=== PATIENT | male | born 1985 | race Caucasian/White ===

== ENCOUNTER 2017-12-14 15:12 | Emergency (ER) | payer OTHER, SELFPAY ==
[2017-12-14 15:38] VITALS: BP 145/92; PULSE 82; RESP 20; TEMP 36.9; O2SAT 99; BMI 41.3
[2017-12-14 16:10] LABS: UTC Influenza A Antigen Negative (Negative); UTC Influenza B Antigen Negative (Negative)
--- NOTE | 2017-12-14 16:10 | HMH.EDUTC ---
[facility] – [place] Disposition Clinical Impression: Influenza-like illness, Exposure to influenza Disposition: Home, Self-Care Condition on Discharge: Good Instructions: DI for Influenza -- Adult Additional Instructions: * No sign of a bacterial infection based on symptoms and exam. We discussed chest xray but you declined at this time. As we discussed, with your history, a fever can be concerning and a sign of multiple illness, some serious. Notify your primary care ([facility]) that you have symptoms of the flu but your flu test was negative however you were started on tamiflu. follow up VERY important. Seek attention immediately for new or worsening symptoms. * Start Tamiflu today if you are going to take it. I did recommend it considering your past medical history. Discussed risks, side effects, risk of allergic reaction, and possible benefits. We even discussed hallucinations and uncontrollable fevers. Encouraged to monitor closely.. * If you start to have ANY shortness of breath or difficulty breathing, follow up immediately so we can do the chest xray I discussed today and rule out pneumonia * Lots of rest * Increase fluids, water, gatorade, powerade, pedialyte if /toddler/child * Monitor Temp. Tylenol every 4 hours as needed no more then 5 times a day or 4000mg in 24 hours and/or ibuprofen every 6 hours as needed no more then 3200mg in 24 hours (as long as your primary care doctor has told you that it is ok to take both) for fever/aches/pain. ER if fever no less than 101 despite tylenol and Ibuprofen * I ran interaction check on your Genvoya and also called our pharmacy. No interactions between it and tylenol, tylenol cold and flu or dayquil found. I recommend you contacting the clinic where you get the medication from to be sure since this is a specialized medication. * OTC cold/flu/sinus medication is ok if the pharmacy tells you so but pick one. Do not take multiple different ones as they have similar ingredients and you can overdose on cold medication. I checked on dayquil and tylenol cold and flu, no interactions found with Genvoya. * You (or your child) are contagious until no fever, aches, chills x 24 hours without medication for symptoms. Prescriptions: Oseltamivir Phosphate [Tamiflu 75mg Capsule] 75 mg PO BID #10 cap Time of Disposition: 16:29 Medical Decision Making Vital Signs: 12/14/17 15:38 Temperature 98.5 F Temperature Source Temporal Artery Scan Pulse Rate [Left Brachial] 82 Respiratory Rate 20 Blood Pressure [Left Arm] 145/92 Blood Pressure Mean [Left Arm] 109 Blood Pressure Source [Left Arm] Automatic Cuff Blood Pressure Position [Left Arm] Sitting 02 Sat by Pulse Oximetry 99 Oxygen Delivery Method Room Air - Lab Data Lab results reviewed: Yes: I reviewed the patient's lab results. Lab Results 12/14/17 15:25: Influenza Type A Ag Negative, Influenza Type B Ag Negative - [place] Inquiry Pt receiving controlled substance: No - Reevaluation(s) Reevaluation #1: Discussed symptoms, exam and flu results with patient. Aware it sounds and looks like he might have the flu. Considering his PMHx w/ HIV, I expressed my concern for the possibility of other illnesses. Pt feels this is likely the flu considering his exposure and declines any further workup at this time. Request treatment for the flu and agrees he will follow up immediately for new or worsening symptoms. STRONGLY advised him to call his primary care at [facility] today and report his symptoms (including fever of 102), normal exam and negative flu test in order to see when they want him to follow up. Pt agreeable [facility] [place] HPI - General Stated complaint: Body pains, runny nose, sore throat Time Seen by Provider: 12/14/17 16:11 Mode of Arrival: Ambulatory Source of Information: Patient Limitations: No Limitations Description of Symptoms (Recalled from Triage Doc. by RN): C/O FLU-LIKE SYMPTOMS X2 DAYS HEENT Symptoms (Recalled fro
--- NOTE | 2017-12-14 16:23 | ED_ITS ---
[facility] [place] Clinical Impression: Influenza-like illness, Exposure to influenza Disposition: Home, Self-Care Condition on Discharge: Good Instructions: DI for Influenza -- Adult Additional Instructions: * No sign of a bacterial infection based on symptoms and exam. We discussed chest xray but you declined at this time. As we discussed, with your history, a fever can be concerning and a sign of multiple illness, some serious. Notify your primary care ([facility]) that you have symptoms of the flu but your flu test was negative however you were started on tamiflu. follow up VERY important. Seek attention immediately for new or worsening symptoms. * Start Tamiflu today if you are going to take it. I did recommend it considering your past medical history. Discussed risks, side effects, risk of allergic reaction, and possible benefits. We even discussed hallucinations and uncontrollable fevers. Encouraged to monitor closely.. * If you start to have ANY shortness of breath or difficulty breathing, follow up immediately so we can do the chest xray I discussed today and rule out pneumonia * Lots of rest * Increase fluids, water, gatorade, powerade, pedialyte if /toddler/child * Monitor Temp. Tylenol every 4 hours as needed no more then 5 times a day or 4000mg in 24 hours and/or ibuprofen every 6 hours as needed no more then 3200mg in 24 hours (as long as your primary care doctor has told you that it is ok to take both) for fever/aches/pain. ER if fever no less than 101 despite tylenol and Ibuprofen * I ran interaction check on your Genvoya and also called our pharmacy. No interactions between it and tylenol, tylenol cold and flu or dayquil found. I recommend you contacting the clinic where you get the medication from to be sure since this is a specialized medication. * OTC cold/flu/sinus medication is ok if the pharmacy tells you so but pick one. Do not take multiple different ones as they have similar ingredients and you can overdose on cold medication. I checked on dayquil and tylenol cold and flu, no interactions found with Genvoya. * You (or your child) are contagious until no fever, aches, chills x 24 hours without medication for symptoms. Prescriptions: Oseltamivir Phosphate [Tamiflu 75mg Capsule] 75 mg PO BID #10 cap Time of Disposition: 16:29 Medical Decision Making Vital Signs: 12/14/17 15:38 Temperature 98.5 F Temperature Source Temporal Artery Scan Pulse Rate [Left Brachial] 82 Respiratory Rate 20 Blood Pressure [Left Arm] 145/92 Blood Pressure Mean [Left Arm] 109 Blood Pressure Source [Left Arm] Automatic Cuff Blood Pressure Position [Left Arm] Sitting 02 Sat by Pulse Oximetry 99 Oxygen Delivery Method Room Air - Lab Data Lab results reviewed: Yes: I reviewed the patient's lab results. Lab Results 12/14/17 15:25: Influenza Type A Ag Negative, Influenza Type B Ag Negative - [place] Inquiry Pt receiving controlled substance: No - Reevaluation(s) Reevaluation #1: Discussed symptoms, exam and flu results with patient. Aware it sounds and looks like he might have the flu. Considering his PMHx w/ HIV, I expressed my concern for the possibility of other illnesses. Pt feels this is likely the flu considering his exposure and declines any further workup at this time. Request treatment for the flu and agrees he will follow up immediately for new or worsening symptoms. STRONGLY advised him to call his primary care at [facility] today and report his symptoms (including fever of 102), normal exam an
[2017-12-14 16:34] VITALS: BP 145/92; PULSE 82; RESP 20; TEMP 36.9; O2SAT 99
== END 2017-12-14 16:36 | disposition home or self-care (01) ==
PROVIDERS: Emergency Provider Nurse Practitioner Family
DX: J10.1 Influenza due to other identified influenza virus with other respiratory manifestations (principal); I10 Essential (primary) hypertension; Z21 Asymptomatic human immunodeficiency virus [HIV] infection status
CPT/HCPCS: 87804; 99202